=== PATIENT | male | born 1950 | race Caucasian/White ===

== ENCOUNTER 2021-04-26 17:18 | Inpatient (IN) | payer OTHER ==
[~2021-04-26] VITALS: Ht 175.3 cm; Wt 110.8 kg
--- NOTE | ~2021-04-26 | HC ---
[facility] [place] [address] CONSULTATION Name: MARK AMIN Jerome Room #: 527B-B DIS IN M.R.#: [id number] Admission: 04/26/21 Attend Phys: Supa Olvera, Discharge: 05/03/21 Date of : 54 Report #: [id number] THIS REPORT FOR: cc: OSCAR - Family physician unknown OSCAR - Family physician unknown Smith Tripathi MD ~ DATE OF SERVICE: 05/03/2021 HISTORY OF PRESENT ILLNESS: This is a 70-year-old male patient on whom a consultation was requested this evening to evaluate the patient for the possibility of stroke. I talked to Dr. Olvera who is attending physician because the patient is on the psychiatric floor. I discussed the patient with Dr. Wolf, who is following this patient as a hospitalist as well as director of field service. The patient was discussed with the nurse looking after this patient and the patient himself is pretty competent to give the history and provide reasonable history. The history he gives that he woke up this morning, he tried to get out of the bed and he realized that he could not bear weight on the left side and fell back on the bed. This is when he tried to get up this morning. Nurses saw this patient and the way I understand they noticed it around 8:00 or so. This kind of history is pretty common on the left side of the stroke because the patient has a neglect and they do not realize that they had a stroke and they tend to stand up and then they fall down. It is difficult to be certain, but my feeling is that this patient had a stroke during the sleep and it was noticed when he tried to get up. History is further complicated because the patient was also complaining of stroke. Review of record indicate a consult was called to the [facility], who see "strokes," but the best I can tell, that consult was never done. I was called this evening and I saw the patient immediately because of my review of the record in the computer. The patient is still weak on the left side. REVIEW OF SYSTEMS: Indicate that he says he never had any stroke before. He is a diabetic. His blood sugar is running high. He does not look like he had any hypoglycemia. LABORATORY DATA: His last labs were done on and that time, his sodium was okay and his estimated GFR was 55. His bilirubin was a trace high and on 04/27, he had a vitamin B12, which was normal, but on the lower side of the normal as recommendation now is to try to keep it more than 400. REVIEW OF SYSTEMS: Negative for any definite diagnosis of sleep apnea, but it looks like he is very predisposed for sleep apnea. He does appear to be on lisinopril, indicating that he probably has some hypertension. He said he was taking baby aspirin daily. He denies any swallowing difficulty. He did not complain of any new eye, ENT, cardiac, respiratory, GI, , musculoskeletal, [facility] [address] [place] [address] CONSULTATION Name: MARK AMIN Room #: 527B-B DIS IN M.R.#: [id number] Admission: 04/26/21 Attend Phys: Supa Olvera, DO Discharge: 05/03/21 Date of : 54 Report #: [id number] constitutional, dermatological, hematological symptom associated with these symptoms. He has been complaining of back pain, but his bigger problem was a problem on the left side and he was still feeling weak on the left side and that was his bigger complaint to me. PAST MEDICAL HISTORY: Negative for stroke. FAMILY HISTORY: Also negative for early age stroke. SOCIAL HISTORY: Indicates he does not smoke and he does not drink alcohol at the moment, although he has done it in the past. PHYSICAL EXAMINATION: Indicates that this patient is alert and responsive. He can tell me what month it is, what day it is, what hospital he is in, who the president is, and who was the one before. He does not have any significant speech difficulty. Cranial nerve examination was somewhat difficult to carry out, especially for the visual field. The main finding, which appeared to be on the cranial nerve that he appeared to have a mild facial droop. Neuromuscular finding is the one which is concerning. He does reasonably well when I check his NIH scale and some time, he has trouble holding his left leg for more than 5 seconds, but left arm he holds for the 10 seconds, but he is definitely weak on the left side as compared to the right side as much as I can tell. It takes him much more effort to hold his left arm and left leg than it does on the right side. He was able to guess on the position sense on both sides, but on the left side, it took him longer. His reflexes are diminished, but that is expected with the diabetes. His plantars were mute. His tone looks symmetrical. He does not appear to have any cerebellar sign. I could not look at the fundus. His cardiac examination does not appear to be showing any definite signs of atrial fibrillation, the best I can tell. Respiratory examination is unremarkable. His hearing and vision looks adequate. He does not have any edema. He is morbidly obese. He has been here for depression on the floor. IMPRESSION: The patient's clinical presentation is suggestive of a possible stroke. However, that needs to be confirmed. So far the testing, which has been done is a CT head without contrast and CT angiogram of the head and neck. CT angiogram of the head and neck demonstrated diffuse disease, but no embolus, which will indicate that the patient is a candidate for any thrombectomy or intervention. The diagnosis need to be further confirmed by an MRI of the brain. RECOMMENDATION: This patient needs multiple management. They are summarized as follows: 1. He needs an MRI of the brain to confirm the stroke. Psychiatrist indicated that he has already ordered that. If MRI confirm the stroke, then we need to see whether it looks like a lacunar CVA or whether it looks like an embolic CVA. [address] [address] CONSULTATION Name: MARK AMNI Room #: 527B-B DIS IN M.R.#: [id number] Admission: 04/26/21 Attend Phys: Supa Olvera DO Discharge: 05/03/21 Date of : 54 Report #: [id number] If it looks like a lacunar CVA, then we may not need much workup, but if looks like an embolic CVA, then he needs extensive workup to look for atrial fibrillation as an outpatient. 2. In the meantime, I will suggest doing a swallowing screen on him, which I ordered. If he passes the swallowing screen, he will get a loading dose of 600 mg of Plavix and then he will be on a combination of aspirin and Plavix until the MRI is done. I am going to start him on some normal saline because his blood pressure is running somewhat on the lower side. His diabetes needs to be tightly controlled and I will defer that to other physicians. 3. The option was to either do an MRI stat on him and keep him on the psychiatric floor if MRI is negative or transfer him to acute care where further evaluation can be done medically and all the other questions can be addressed. I discussed that aspect with other physician and I think it is desirable to transfer him to an acute care facility until further evaluation for the stroke is complete. Because until that he is going to need further management like increasing his blood pressure, monitoring him neurologically closely to make sure there is no deterioration, looking for atrial fibrillation, and doing an extensive workup including MRI and other parameter which need to be followed for the stroke protocols. 4. From all indication, it looks like he woke up with these symptoms and therefore, I do not believe he was a candidate for TPA at any stage. He is not a candidate for thrombectomy because there is no embolus, which has been defined and the disease is diffuse rather than abrupt cutoff. 5. He does need the other management with a presumptive diagnosis of stroke at the moment until an MRI can be done, which will either confirm the stroke or exclude that. Until MRI is done, I think we will continue to manage this patient with the presumptive diagnosis of stroke and decide about further management after the MRI is done. However, he is not a TPA candidate and he is not an intervention candidate for thrombectomy because there is no thrombus found and he is not a TPA candidate because of the timing. Thank you very much for this referral and if you have any questions, please feel free to contact me. By: [id number] Smith Tripathi MD /nt
[~2021-04-26 17:18] MED LIST: APAP650 PO; ARIXTRA SQ; BENADRYL25 MG PO; COLACE 100 MG100 MG PO; IBUPROFEN 800800 M1 PO; METAMUCIL POWD798 GM PO; MIRALAX255 GM PO; MOM; NEXIUM PO; OXYCONTIN10 M1 PO; OXYIR 5 MG CAPSU5 M1 PO
[2021-04-26 23:20] VITALS: BP 125/80
[2021-04-27] MEDS ORDERED: LIPITOR10 MG PO (00:04)
[2021-04-27] MEDS ORDERED: TESSALON PERLE100 MG PO (00:06)
[2021-04-27] MEDS ORDERED: CELEBREX 200 M200 M1 PO (00:08)
[2021-04-27] MEDS ORDERED: GLIPIZIDE 10 MG10 MG PO (00:10)
[2021-04-27] MEDS ORDERED: HYDROCODON-ACE1 EAC7 PO (00:12)
[2021-04-27] MEDS ORDERED: LISINOPRIL10 MG PO (00:13)
[2021-04-27] MEDS ORDERED: METFORMIN HCL500 M3 PO (00:14)
[2021-04-27] MEDS ORDERED: PROTONIX40 M2 PO (00:17)
--- NOTE | 2021-04-27 02:06 | NUR ---
04-26-212314 RECEIVED REPORT FROM ED CORYE LUCAS. PT ARRIVED ON UNIT 2320 AAOX4, VS B/P 125/80, P 90, R 18, T 96.2, 02 SAT 96% RA, RR EVEN AND NONLABORED; LUNGS CLEAR, HT RR, ABD SOFT/ACTIVE/NONTENDER. PT SKIN W/D, OLD SCARS NOTED, PT HAS CHARCOT FOOT. PT HAS GOOD ROM AND REPORTED USING A CANE AND ORTHO LEG BRACE FITTED TO TENNIS SHOES WITH LACES. PT REPORTED HE HAS USED A WALKER AND WALKER PROVIDED. PT DENIES SI/HI, BUT REPORTS HE HAS BEEN FEELLING SI SINCE MAURICIO CHISHOLM AFTER FAMILY ARGUMENT. PT HX DM2, HTN, HIGH CHOLESTEROL, CHARCOT FOOT, CHRONIC PAIN, KIDNEY STONES, ULCER, CHOLESCYSTECTOMY, TONSILECTOMY AND R. TOTAL KNEE. PT DENIES PAIN. PT BED ADJUSTED FOR COMFORT, LOWEST POSITION, LOCKED AND ALARM ENGAGED. HCP Cj ROSALES NP CONTACTED AND HCP Bandar ISSA NP CONTACTED AND ORDERS RECEIVED. PT WILL CONTINUE TO BE MONITOR PER [facility] PROTOCOL.
[2021-04-27 09:53] VITALS: BP 147/95
--- NOTE | 2021-04-27 10:24 | NUR ---
RESUMMED CARE FROM OVERNIGHT SHIFT THIS AM, PATIENT IN ROOM LYING QUIET. PATIENT CAME TO DAY ROOM FOR BREAKFAST TOOK MEDICATION WITHOUT INCIDENCE. PATIENT DENIES PATIENT DENIES HI/AH/VH AT PRESENT DOES HAVE PASSIVE SI. PATIENT STATES HIS DEPRESSION IS A 4 HIS ANXIETY IS A 4; PATIENT IS WORRIED THAT HE MAY GET HIS LT FOOT AMPUTATED. PATIENT HAS ALFONSO OF BOTH FEET MORE PRONOUNCED IN LT FOOT. PATIENTS ABDOMEN SOFT BOWEL SOUNDS PRESENT PATIENTS LUNGS CLEAR. PATIENT CALM QUIET PATIENT DID COME TO GROUP BUT MINIMAL PARTICPATION. WILL CONTIUE TO MONITOR PATIENT FOR SAFETY AND BEHAVIORS.
[2021-04-27 12:05] LABS: ANION GAP 12 mmol/L (7-16); BUN 21 mg/dL (7-18); CALCIUM 10.1 mg/dL (8.5-10.1); CHLORIDE 101 mmol/L (98-107); CHOLESTEROL 107 mg/dL (<200); CO2 24 mmol/L (21-32); CREATININE 1.4 mg/dL (0.7-1.3); GLUCOSE 397 mg/dL (74-106); HDL CHOLESTEROL 29 mg/dL (>40); LDL CHOLESTEROL 56 mg/dL (<100); MAGNESIUM 1.2 mg/dL (1.8-2.4); POTASSIUM 4.2 mmol/L (3.5-5.1); SODIUM 137 mmol/L (136-145); TC:HDL 3.7 Ratio (Not establshd); TRIGLYCERIDE 114 mg/dL (<150); VLDL 23 mg/dL (<40)
--- NOTE | 2021-04-27 13:36 | NUR ---
New admit to [facility]. Admission was lat last noc and there is minimal information in [facility]. Per chart review, he has PMH DMII, HTN, charcot foot. Noted with elevated glucose on admit >350. Other standard labs pending. Insulin in place. 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 Ate 100% bkft on 1800 [facility] diet with no c/o chewing/swallowing issues at this time. Follow up 04/29 when there is more information.
[2021-04-27 18:35] LABS: FOLIC ACID 8.4 ng/mL (8.6-58.9)
[2021-04-27 19:20] VITALS: BP 100/65
[2021-04-28 01:06] LABS: GLYCOHEMOGLOBIN (HGB A1C) 8.9 % (4.8-5.6)
--- NOTE | 2021-04-28 04:48 | NUR ---
04-27-21 CARE TRANSFERRED 1899. LATER PT PRESENTS DEPRESSED AND REPORTS BEING SAD OVER HIS EMOTIONAL OUTBURSTS MAURICIO KATHRINE. PT AAOX4, VSS, RR EVEN AND NONLABORED ON RA, LUNGS CLEAR, HT RR, ABD SOFT/ACTIVE/NONTENDER. PT DENIES SI/HI AND PAIN. STANDBY ASSISTANCE DURING TOLIETING. PT BED LOW, LOCKED AND ALARM ENGAGED. PT WILL CONTINUE TO BE MONITOR PER [facility] PROTOCOL.
[2021-04-28 08:47] VITALS: BP 129/67
--- NOTE | 2021-04-28 09:41 | H ---
[facility] [place] [address] HISTORY AND PHYSICAL Name: MARK AMIN Room #: 527B-B ADM IN M.R.#: [id number] Admission: 04/26/21 Attend Phys: Supa Olvera DO Discharge: Date of : 54 Report #: [id number] THIS REPORT FOR: cc: FAM - Family physician unknown FAM - Family physician unknown Supa Olvera DO ~ DATE OF SERVICE: 04/26/2021 INPATIENT PSYCHIATRIC EVALUATION ATTENDING PSYCHIATRIST: Supa Olvera DO MEDICAL CONSULTANTS: Ms. Norma Melgoza and Pierre Guzmán MD REASON FOR ADMISSION: Suicidal ideation. SOURCES OF INFORMATION: Records from [facility], interview with the patient, and chart review here at [place]. CHIEF COMPLAINT: "I lost it." HISTORY OF PRESENT ILLNESS: This is a 70-year-old obese male with diabetes and Charcot foot disease. The patient's records from [facility] are as follows: He presented to [facility] ED due to thoughts to hang himself and attempted to do this 11 years ago, but could not bring himself to jump off the ladder. The patient reports in the past month his depression has been exacerbated and he was having thoughts to hang himself in his basement. Denies HI or hallucinations. Reports that he had a dispute with his and his children. To me, the patient reported that his son-in-law disciplined his granddaughter and told her that they were going to leave. The patient reports that his stayed as he must get help to move out of the house. The patient reports he has anger control problems throughout his lifetime. In the ER, he was awake, oriented, calm, and cooperative. Thoughts were linear and goal directed. He lives with his in her home. They have 2 grown daughters and 2 granddaughters. He reports he has not slept for more than an hour at a time since when it was before . 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 He reports feeling lost. The patient denies ever seeing a psychiatrist. Denies being physically, sexually or emotionally abused, however. LABORATORY DATA: From [facility], sodium 135, potassium 4.0, chloride 105, bicarbonate 20, anion gap of 8, calcium 9.9, glucose was 313. Serum protein 7.6, albumin 4.4. Alkaline phosphatase 89, ALT 23, AST 16, bilirubin [address] [address] HISTORY AND PHYSICAL Name: CHERYLTamraMARK Room #: 527B-B ADM IN M.R.#: [id number] Admission: 04/26/21 Attend Phys: Supa Olvera DO Discharge: Date of : 54 Report #: [id number] 1.70, BUN 19, creatinine 1.20. GFR male non- 16.2. UDS was negative. Urine had glucosuria, otherwise negative. CBC: White count 8.8, H and H 16.6 and 48, platelet count 235. PAST MEDICAL HISTORY: Includes first degree AV block, aortic valve calcification, arthritis, GERD, hypertension, intractable low back pain, remote history of kidney stone, obesity, peptic ulceration, spinal stenosis, type 2 diabetes mellitus. PAST SURGICAL HISTORY: Appendectomy, cholecystectomy, joint replacement, tonsillectomy, and total knee arthroplasty. FAMILY MEDICAL HISTORY: Heart disease in his mother. Arthritis in his mother who is . Cancer in his father who is . Diabetes in his father. Heart attack in a brother. Alcohol abuse in a brother who is . He states he had 5 siblings, they are all now. Diabetes in maternal grandmother. Heart disease in his brother who is . Lung cancer in his sister who is . SOCIAL HISTORY: No history of smoking. No history of vaping. He drinks 1 standard drink of alcohol a week. REVIEW OF SYSTEMS: From [facility] ER: CONSTITUTIONAL: Negative for chills, diaphoresis, fatigue and fever. RESPIRATORY: Negative for cough and stridor. CARDIOVASCULAR: Negative for chest pain, palpitations. GASTROINTESTINAL: Negative for abdominal pain. GENITOURINARY: Negative for difficulty urinating. NEUROLOGIC: Negative for dizziness, lightheadedness. PSYCHIATRIC: Positive SI, depression, family discord, discord with . MUSCULOSKELETAL: He does have Charcot foot, uses a walker, difficulty walking. All other review of systems were negative in the [facility] ER and currently. HOME MEDICATIONS: Include atorvastatin, Tessalon Perles, diclofenac, glipizide, hydrocodone, lisinopril, metformin, Pantoprazole. His primary care physician is in the [facility] system, but I do not have record of it. Actually, he says he got to the ER due to being referred by the [facility] portal. PCPis Dr. Kareem Walker. He sees Dr. Julian, at [facility]. Remainder of the chart had ER notes indicated the family discord. States his son-in-law handling the disciplinary issues with his daughter fed him off and he states his one daughter, Matt was not there and at this moment he has a good relationship with her. [facility] [address] [place] [address] HISTORY AND PHYSICAL Name: MARK AMIN Jerome Room #: 527B-B ADM IN M.R.#: [id number] Admission: 04/26/21 Attend Phys: Supa Olvera DO Discharge: Date of : 54 Report #: [id number] VITAL SIGNS: Today, temperature 35.9, pulse 93, respirations 18, BP 147/95, O2 sat 96%. Repeat BP 138/78, pulse rate 72 this afternoon. PHYSICAL EXAMINATION: Ambulates slowly with a walker, He has Charcot foot deformity of I believe his left foot, but he has Charcot disease. MENTAL STATUS EXAMINATION: Well-developed, obese male, appearing to be stated age. Attention fair. Concentration fair. Speech slightly slow. Thought process: Linear and goal oriented. Thought content: Focused on ameliorating his situation, getting control of his anger, has relationship with his familial connections. Endorsed current SI. Denied HI. Endorsed plan to hang himself. Memory not formally tested. Insight and judgment impaired. Fund of knowledge well below average. Mood and affect depressed, restricted, congruent, diminished range. FORMULATION: A 70-year-old obese male, retired, presenting with SI, transferred from [facility]. The patient has a number of family stressors. PLAN: [facility]. Hospice consult to evaluate and stabilize. I went ahead and started him on 5 mg a day on Lexapro as he is on no psychotropic medications. I also added 200 mg of Neurontin 3 times a day for impulse control. He does have slight acute kidney injury at this time. His renal function will need to be monitored. ESTIMATED LENGTH OF STAY: 10-14 days. I would like to make contact with one of his daughters over the next few days. STRENGTHS: He is insured, has some family support. WEAKNESSES: Limited coping skills. Also, diagnostically, I have diagnosed him a major depressive disorder, unspecified degree and intermittent explosive disorder. Time spent on this case, greater than 60 minutes, greater than 50% of time in review of records and coordination of care. <ELECTRONICALLY SIGNED> By: Supa Olvera DO 04/28/21 0941 19 39 Supa Olvera DO /nt
[2021-04-28 10:31] VITALS: BP 129/67
--- NOTE | 2021-04-28 12:12 | NUR ---
04-28-2021--1115--Call to , Alyssa ([phone]) with the doctor to obtain oinformation for the completion of a psychosocial assessment.
--- NOTE | 2021-04-28 12:42 | NUR ---
PATIENT CARE ASSUMED AT 0700 - PATIENT IN ROOM WHEN ARRIVING ON UNIT. ALERT AND ORIENTED X 4 - EXTREMELY DEPRESSED - AFFECT BLUNTED AND MOOD SAD AND WITHDRAWN. STATED WAS ON BAD TERMS WITH FAMILY - HAVING AN OUTBURST MAURICIO KATHRINE. STATED HAD EXTREME ANGER ISSUES AND UNABLE TO CONTROL TEMPER. OUTBURST OCCURRED ON HOLIDAY KATHRINE AND TOLD HIM TO GET OUT - PATIENT ADMITS TO DEPRESSION AND RELUCTANT TO TALK ABOUT IT. PATIENT AMBULATORY AND SELF CARE. COMPLIANT WITH MEDICATIONS. HEART RATE STRONG AND STEADY, LUNGS CLEAR ON AUSCULTATION, BOWEL SOUNDS ACTIVE IN ALL FOUR QUADRANTS- SKIN INTACT AND CLEAR. PATIENT CALLED AND SPOKE WITH STAFF AND PATIENT. CONVERSATION WENT WELL. CONCERNED AND REDIRECTED TO DR. HEART AND SPECIAL ORDER JEWELER TO CONTACT. WILL CONTINUE TO MONITOR PATIENT FOR CHANGES IN BEHAVIOR OR CONCERNS AND ADDRESS ACCORDINGLY.
[2021-04-28 19:42] VITALS: BP 110/71
--- NOTE | 2021-04-29 05:21 | NUR ---
04-28-21 CARE TRANSFERRED 1899 OBSERVED PT SITTING IN DAY ROOM SOCIALIZING WITH PEER. LATER PT AAOX4, VSS, RR EVEN AND NONLABORED ON RA, LUNGS CLEAR, HT RR, ABD SOFT/ACTIVE. PT REPORTS PAIN IN ANKLE BUT DENIES NEEDING ANY PAIN MEDICATION. PT DENIES SI/HI. PT REPORTS STILL FEELING DEPRESSED OVER MAURICIO KATHRINE EMOTIONAL OUTBREAK. PT CALM AND COOPEATIVE. PT WILL CONTINUE TO BE MONITOR PER [facility] PROTOCOL.
[2021-04-29 07:05] LABS: CALCIUM 9.5 mg/dL (8.5-10.1); CREATININE 1.3 mg/dL (0.7-1.3); POTASSIUM 4.3 mmol/L (3.5-5.1)
--- NOTE | 2021-04-29 08:01 | NUR ---
04-29-2021--Call to Patient's and set up family meeting for 05-03-2021 @ 1:00 PM. She was agreeabble to this.
[2021-04-29 08:51] VITALS: BP 127/71
[2021-04-29 09:10] VITALS: BP 127/71
--- NOTE | 2021-04-29 09:14 | NUR ---
RESUMMED CARE FROM OVERNIGHT SHIFT THIS AM; PATIENT AWAKE ALERT ORIENTED TIMES 4. PATIENT DENIES SI/HI/AH/VH AT PRESNT. PATIENT ATE BREAKFAST TOOK MEDICATION WITHOUT INCIDENCE. PATIENTS ABDOMEN SOFT BOWEL SOUNDS PRESENT, PATIENTS LUNGS CLEAR. PATIENTS AFFECT FLAT CALM COOPERTIVE, PATIENT DOES PARTCPATE IN GROUPS. WILL CONTINUE TO MONITOR PATIENT FOR SAFWETY AND BEHAVIORS.
--- NOTE | 2021-04-29 10:17 | NUR ---
Nutrition: Pt with 100% intakes since admit on 1800 [facility] diet. A1c 8.9, BG still uncontrolled but showing improvement with meds in place. Folic acid ordered for folate deficiency, Mg for hypomagnesemia, statin for HLD. BMI 35, class II obesity. Low nutrition risk.
--- NOTE | 2021-04-29 12:57 | NUR ---
Critical result noted at 1120; Isolation precautions put in place, COVID PCR results positive; will continue to monitior
--- NOTE | 2021-04-29 15:49 | NUR ---
Second PCR test reveals negative; Nurse Press Box Custodian Mary informed of result; isoation precautions lifted; no symptoms visualized at this time;
[2021-04-29 17:51] VITALS: BP 137/73
[2021-04-29 19:32] VITALS: BP 139/77
--- NOTE | 2021-04-29 22:30 | NUR ---
At onset of night order selector pt was sitting in day room watching TV. This shift pt was up ad berry with walker, alert and oriented x4 with constricted affect. Pt was compliant with medication and vital signs. Pt denied SI, HI and AVH. Pt stated his depression and anxiety are a little better. Pt stated at times during the day his anxiety is a little worse due to a male peer yelling on the unit, but pt stated he would go to his room if he was too agitated by the peer. Pt talked about coping skills at home; including walking his dog, getting away from the triggering situation, and going outside. Pt is high fall risk; fall precautions are in place. Will continue to monitor.
[2021-04-30 07:49] LABS: BASOPHILS 0.3 % (0.0-2.0); EOSINOPHILS 1.2 % (0.0-3.0); HEMATOCRIT 44.7 % (42.0-52.0); LYMPHOCYTES 22.1 % (24.0-44.0); MCH 31.6 pg (26.0-34.0); MCHC 33.5 g/dL (28.0-37.0); MCV 94.3 fL (80.0-100.0); MONOCYTES 9.1 % (1.0-8.0); PLATELET COUNT 225 thou/uL (150-400); POLYS 67.3 % (36.0-66.0); RBC 4.74 mil/uL (4.50-6.00); WBC 7.4 thou/uL (4.0-11.0)
[2021-04-30 08:11] LABS: ALBUMIN 3.3 g/dL (3.4-5.0); CALCIUM 9.3 mg/dL (8.5-10.1); CREATININE 1.3 mg/dL (0.7-1.3); MAGNESIUM 1.2 mg/dL (1.8-2.4); TOTAL BILIRUBIN 1.4 mg/dL (0.2-1.0); TOTAL PROTEIN 6.7 g/dL (6.4-8.2)
[2021-04-30 09:30] VITALS: BP 136/87
[2021-04-30 11:52] VITALS: BP 136/87
--- NOTE | 2021-04-30 16:13 | NUR ---
Patient care resummed; patient in bed resting comfortably in bed; A&O*4; Lung sounds clear bilaterlly/diminished bases; Abdomen soft, nondistended, with BSP*4; VSS on RoomAir; Denies SI/HI/AVH; Patient states his depression "Isn't anything compared to where it has been." Patient also states to [employer] he isnt having any anxiety, and he only does when patients are yelling around him; Fall risk precautions are in place; Denied pain at beginning of the day although after being up and walking around all day he began having some mild pain in his BLE; Medications given per EMAR; Presents, [id number]; Will continue to monitior for safety and behaviors;
[2021-04-30 16:34] VITALS: BP 138/79
[2021-04-30 19:54] VITALS: BP 123/69
--- NOTE | 2021-05-01 06:42 | NUR ---
Pt was cooperative with care. Denied anxiety and depression. Pt slept well this shift. Meds given per emar. Covid swab done and sent to lab. No s/sx of acute pysch distress noted. Nursing to continue to monitor.
[2021-05-01 09:01] VITALS: BP 130/86
[2021-05-01 17:00] VITALS: BP 149/87
--- NOTE | 2021-05-01 18:24 | NUR ---
Alert and orientated X4. Calm, cooperative and compliant. Denies SI/HI. Breath sounds clear. Reg HR auscultated. Color pink with brisk capillary refill and palpable peripheral pulses. Independent with voiding. Active bowel sounds over large, rounded abdomen. Ambulates with walker with regular, steady gait. Hyperglycemia txed with lispro t/o day. Currently sitting in day room with peers watching TV.
--- NOTE | 2021-05-02 04:26 | NUR ---
Assumed pt's care this pm shift. Alert and oriented. Cooperative with care. Took meds whole without difficulties. Pt asked for the result of his covid test. Nursing saw that swab have not resulted. Lab was called as it says swab was not received. Lab staff confirmed swab has been received. Lab resulted negative. Pt already sleeping at the time. Will inform pt of result this am.
[2021-05-02 09:01] VITALS: BP 137/73
--- NOTE | 2021-05-02 11:17 | NUR ---
05-02-2021--1045--Physician came in to give me information re: patient. He will DC tomorrow. I will call [facility] to set up appt if possible. Also he will need a therapist and case assistant and a PHP program. Will call in the AM as no one is in on Monday.
--- NOTE | 2021-05-02 12:23 | NUR ---
COOPERATIVE AND PLEASANT. DENIES SI/SH/HI. ALERT AND ORIENTED X4-GAIT STEADY WITH USE OF ROLLER WALKER. NO NOTED OR REPORTED ACUTE ANXIETY OR PSYCHOSIS.PLANS DC TOMORROW
--- NOTE | 2021-05-02 14:19 | NUR ---
05-02-2021--Called patient into my office to discuss DC planning. I explained about what the recommendations (psychiatrist, therapist, school office manager and [facility] ([facility] out patient pshchiatric program). He listened attentively and stated the comprehensie program at [facility] was the closest. I told him I would call them in the AM to discuss process for getting into their program and then I would then talk to him again. I explained I thought Dialectical Behavioral Therapy (DBT) would be a good progra for him. He was agreeable to this. Will call facilities again oin the AM.
--- NOTE | 2021-05-02 14:26 | NUR ---
04-01-2022--1245--Patient and I discussed how to tell something to someone and not have them get angry with you. When you... I feel... Because... What I want is...; We practiced using this "formula" with different issues. Will use this in group for more prctice and try to again tomorrow morning when he gets up.
--- NOTE | 2021-05-02 18:00 | NUR ---
REPORTING LOW BACK PAIN RATED A 7-8 ON PAIN SCALE AT 1645-REQUESTING PAIN MEDICATION-NORCO5/325MG GIVEN PO PRN PER REQUEST WITH FOLLOW UP PAIN REASSESSMENT COMPLETED AT 1715-REPORTS MINIMAL PAIN RELIEF AFTER ADMINISTRATION STATING FELT LIKE PAIN "WAS GETTING A LITTLE BETTER" UNTIL HE STOOD UP TO WALK BACK TO ROOM WHEN HE HAD SEVERE "SHOOTING" PAIN THAT WENT FROM LOW BACK DOWN LEG. ENCOURAGED ALLOWING SDTAFF TO WALK WITH HIM-REINFORCED FALLS PRECAUTIONS.
[2021-05-02 19:50] VITALS: BP 154/85
[2021-05-02 20:24] VITALS: BP 154/85
--- NOTE | 2021-05-03 04:45 | NUR ---
PATIENT CARE WAS RESUMED AT 1900.HE WAS RESTING IN BED AND VERY EXCITED ABOUT GOING HOME THE NEXT DAY. HE IS CONTINIET OF BOWEL AND BLADDER. LUNGS ARE CLEAR BS ACTIVE X4 QUADS. HE DENIES PAINS/SI/AVH/HI. HE TOOK HIS MEDS WHOLE ND ABLE TO VERBALIZE HIS NEEDS. BED IS LOW AND LOCKED.AMBUALTES , CONTINENT OF BOWEL AND BLADDER.
--- NOTE | 2021-05-03 09:15 | NUR ---
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
--- NOTE | 2021-05-03 13:02 | NUR ---
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 SANFORD-USING ROLLER WALKER TO GET AROUND IN ROOM AND GAIT IS BASELINE. VS PER MD ORDER WNL. PT DOES CONTINUE TO REPORT LOW BACK PAIN RATED A 7 ON 1-10 SCALE-STATES PAIN IS SHOOTING IN NATURE AND STARTED LAST PM.
--- NOTE | 2021-05-03 13:05 | NUR ---
REPORTS POOR RESPONSE TO TYLENOL 650MG PO PRN GIVEN AT 0900 THIS AM.
[2021-05-03 16:28] VITALS: BP 124/70
[2021-05-03] MEDS ORDERED: COREG6.25 MG PO (17:32)
[2021-05-03] MEDS ORDERED: NEURONTIN 300M300 M2 PO (17:32)
[2021-05-03] MEDS ORDERED: LEXAPRO 10 MG T10 MG PO (17:33)
[2021-05-03] MEDS ORDERED: MAGNESIUM400 MG PO (17:33)
[2021-05-03] MEDS ORDERED: TRADJENTA5 MG PO (17:34)
[2021-05-03] MEDS ORDERED: LANTUS100 UNIT/M SUBQ (17:34)
[2021-05-03] MEDS ORDERED: FOLIC ACID1 MG PO (17:35)
[2021-05-03] MEDS ORDERED: GLIPIZIDE ER2.5 MG PO (17:35)
[2021-05-03 17:50] LABS: HEMATOCRIT 43.6 % (42.0-52.0); HEMOGLOBIN 14.8 gm/dL (14.0-18.0); MCH 31.9 pg (26.0-34.0); MCHC 33.9 g/dL (28.0-37.0); RBC 4.64 mil/uL (4.50-6.00); RDW 14.1 % (10.5-14.5); WBC 8.1 thou/uL (4.0-11.0)
[2021-05-03 18:00] LABS: INR 1.02; PROTIME 11.1 Seconds (10.5-12.1)
[2021-05-03 18:04] LABS: ALBUMIN 3.2 g/dL (3.4-5.0); CREATININE 1.3 mg/dL (0.7-1.3); MAGNESIUM 1.8 mg/dL (1.8-2.4); POTASSIUM 3.8 mmol/L (3.5-5.1); TOTAL BILIRUBIN 1.1 mg/dL (0.2-1.0); TOTAL PROTEIN 6.8 g/dL (6.4-8.2)
--- NOTE | 2021-05-03 18:15 | NUR ---
HAS BEEN UP IN ROOM USING ROLLER WALKER-GAIT STEADY WITH USE OF WALKER-UNCHANGED FROM BASELINE. 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 [place]. NO FACIAL DROOPING OR ONE SIDED DEFECITS NOTED-PT STATES FEELS "FINE" "A LITTLE TIRED FROM ALL THE TESTS" SPEECH NORMAL-NO SLURRING OR APHASIA NOTED. ATE 100 PERCENT OF LUNCH AND SUPPER WITHOUT NOTED OR REPORTED SWALLOWING ISSUES. BP /VS NEUROS Q 4 HOURS WNL.LAST BP 122/74 P-78 AND REG. R-16 AND REG O2 SAT 99 PERCENT ON RA
--- NOTE | 2021-05-04 17:21 | D ---
[facility] [place] [address] DISCHARGE SUMMARY Name: MARK AMIN Room #: 527B-B [facility] IN M.R.#: [id number] Admission: 04/26/21 Attend Phys: Supa Olvera DO Discharge: 05/03/21 Date of : 54 Report #: [id number] THIS REPORT FOR: cc: FAM - Family physician unknown FAM - Family physician unknown Supa Olvera DO ~ DATE OF SERVICE: 05/03/2021 INPATIENT PSYCHIATRIC DISCHARGE SUMMARY ATTENDING PSYCHIATRIST: Supa Olvera DO DRY CHAIN PULLER: Saul Wolf MD DISCHARGE DIAGNOSES: 1. Likely acute cerebrovascular accident, not a candidate for TPA. 2. Major depressive disorder, unspecified, F32.9. 3. Intermittent explosive disorder, F63.81. The patient is being discharged to a critical care tele at [facility] given concern of having a cerebrovascular accident today. His diet and activity level will be per the hospitalist. Please note over 90 minutes today was spent on managing various issues of this case, officially though, he remained inpatient of [facility] on the [facility] until after hours today. Atorvastatin 10 mg oral daily for hyperlipidemia, lisinopril 10 mg oral daily for hypertension, pantoprazole 40 mg oral daily for GERD, Coreg 6.25 mg oral twice daily with meals for hypertension, gabapentin 300 mg oral 3 times a day for intermittent explosive disorder, Lexapro 5 mg oral daily for depression, magnesium oxide 400 mg oral at bedtime for supplementation, Tradjenta 5 mg oral daily for diabetes mellitus, Lantus 10 units subcutaneous at bedtime, glipizide 5 mg oral daily for diabetes mellitus, folic acid 1 mg oral daily. He should be on a diabetic 1800 calorie diet. Accu-Cheks before meals and at bedtime, up with assist, recommending the only acute care for to get speech as well as physical and occupational therapy evaluation. LABORATORY DATA: Significant labs prior to discharge from [facility]. White count 8.1, H and H 14.8 and 43.6, platelet count 207. Coags today. PT 11.1, INR 1.02, APTT 30.2, all within normal limits. Electrolytes today, sodium 132, potassium 3.8, chloride 99, bicarbonate 26, anion gap 7, BUN 18, creatinine 1.3, estimated GFR 55, glucose 234, calcium 9.0, magnesium 1.8, total bilirubin 1.1, AST 6, ALT 18, alkaline phosphatase 78, total protein 6.8, albumin slightly low at 3.2. COVID-19 serology was positive on 04/29, it was a false positive and repeat was negative on 04/29 and was not detected on 05/01/2021. The patient had several imaging studies: Chest x-ray was negative that was done for concern of COVID. There was a stroke alert called and then canceled this morning. He did have a noncontrast head CT, which showed atrophic changes, no acute intracranial process. Also, interestingly had a CT angiogram [address] [address] DISCHARGE SUMMARY Name: MARK AMIN Room #: 527B-B [facility] IN ..#: [id number] Admission: 04/26/21 Attend Phys: Supa Olvera, Discharge: 05/03/21 Date of : 54 Report #: [id number] of the head, which showed mild diffuse cerebral atrophy, multifocal mild stenosis of the cavernous segment of the distal internal carotid arteries bilaterally and atherosclerotic calcifications of the carotid bulb bilaterally with no hemodynamically significant stenosis. REASON FOR ADMISSION: Back on or so march, 70-year-old male, obese diabetic, has Charcot foot, accepted from [facility]. The patient was having suicidal ideation. He had a history of prior attempt 11 years ago, recent family discords on Matter and Form, argument with both his daughters, his giving him an ultimatum, move out or get help. HOSPITAL COURSE: The patient was admitted to Geriatric Psychiatry Unit. The patient was generally depressed. He did have a history from home of intermittent explosive episodes with relatively euthymic mood in between. The patient was started on gabapentin 200 mg 3 times a day, titrated to 300 mg 3 times a day, also started on Lexapro 5 mg oral daily. Unfortunately, the patient woke up with left sided weakness this morning. This was worked up with an initial head CT with negative results. The patient remains symptomatic, Neurology was consulted. Recommendation for discharge to the medical unit to look for other causes such as atrial fibrillation. DISCHARGE PHYSICAL EXAMINATION: VITAL SIGNS: As follows: Temperature 36.8, pulse 80, BP 124/70, respiratory rate 22. MUSCULOSKELETAL: Lying in bed, appearing somewhat worn out. MENTAL STATUS EXAMINATION: This is a well-developed, ill-appearing, obese male, BMI 36.1. Hemoglobin A1c was 8.9 from his recent admission. LDL was 56, HDL was 29. Triglycerides 140, cholesterol 107. Attention intact. Concentration is intact. Speech, normal rate, volume and tone. Thought process: Linear and goal oriented. Thought content: Relative poverty of thought. Denied SI, HI. No auditory or visual type hallucinations. Mood and affect constricted, congruent. Insight and judgment fair to limited. Fund of knowledge average range. Prognosis for this patient is guarded as he is being discharged to [facility] due to acute cerebrovascular accident concern. It should be noted Dr. Tripathi, consulted on this case today. <ELECTRONICALLY SIGNED> By: Supa Olvera DO 05/04/21 1721 1802 [id number] Supa Olvera DO /nt
== END 2021-05-03 18:51 | disposition short-term general hospital (02) | DRG 885 ==
LOC: SBH
PROVIDERS: Internal Medicine; Nurse Practitioner; ADMIT Psychiatry & Neurology Psychiatry; ATTEND Psychiatry & Neurology Psychiatry
DX: F32.2 Major depressive disorder, single episode, severe without psychotic features (principal); F63.81 Intermittent explosive disorder; E11.65 Type 2 diabetes mellitus with hyperglycemia; R45.851 Suicidal ideations; Z20.822 Contact with and (suspected) exposure to COVID-19; I10 Essential (primary) hypertension; E78.5 Hyperlipidemia, unspecified; F41.9 Anxiety disorder, unspecified; E11.42 Type 2 diabetes mellitus with diabetic polyneuropathy; E83.42 Hypomagnesemia; Z90.49 Acquired absence of other specified parts of digestive tract; Z87.442 Personal history of urinary calculi
CPT/HCPCS: 10880

== ENCOUNTER 2021-05-03 17:44 | Inpatient (IN) | payer OTHER ==
[~2021-05-03] VITALS: Ht 167.6 cm; Wt 108.9 kg
[~2021-05-03 17:44] MED LIST changes: +CELEBREX 200 M200 M1 PO; +COREG6.25 MG PO; +FOLIC ACID1 MG PO; +GLIPIZIDE 10 MG10 MG PO; +GLIPIZIDE ER2.5 MG PO; +HYDROCODON-ACE1 EAC7 PO; +LANTUS100 UNIT/M SUBQ; +LEXAPRO 10 MG T10 MG PO; +LIPITOR10 MG PO; +LISINOPRIL10 MG PO; +MAGNESIUM400 MG PO; +METFORMIN HCL500 M3 PO; +NEURONTIN 300M300 M2 PO; +PROTONIX40 M2 PO; +TESSALON PERLE100 MG PO; +TRADJENTA5 MG PO
[2021-05-03 20:15] VITALS: BP 131/84
[2021-05-04 03:25] LABS: HEMATOCRIT 41.4 % (42.0-52.0); HEMOGLOBIN 14.3 gm/dL (14.0-18.0); MCH 32.1 pg (26.0-34.0); MCHC 34.5 g/dL (28.0-37.0); MCV 93.2 fL (80.0-100.0); RBC 4.44 mil/uL (4.50-6.00); RDW 14.1 % (10.5-14.5); WBC 8.3 thou/uL (4.0-11.0)
[2021-05-04 03:50] LABS: CREATININE 1.2 mg/dL (0.7-1.3); POTASSIUM 3.8 mmol/L (3.5-5.1)
[2021-05-04 03:58] LABS: CHOLESTEROL 98 mg/dL (<200); HDL CHOLESTEROL 36 mg/dL (>40); LDL CHOLESTEROL 51 mg/dL (<100); TC:HDL 2.7 Ratio (Not establshd); TRIGLYCERIDE 58 mg/dL (<150); VLDL 12 mg/dL (<40)
[2021-05-04 04:08] LABS: SERUM ASSESSMENT Clear
[2021-05-04 04:45] VITALS: BP 128/80
--- NOTE | 2021-05-04 07:20 | NUR ---
ASSUMED CARE OF PT AT 1900. PT ASSESSED TO BE AOX4 70M PRESENTING WITH CVA SYMPTOMS. PT WAS ABLE TO REST QUIETLY THROUGHOUT THE NIGHT IN BED WITH NO COMPLAINTS AFTER ALL ADMIT CHECKLIST COMPLETED, VSS. PT STABLE ON RA, NIH INITIALLY 2 (ONLY DEFECITS ARE SLIGHT WEAKNESS IN L ARM AND LEG), CONTINENT WITH URINAL, NEW IV R FORE 18G WITH FLUIDS RUNNING, AND WILL AWAIT MRI IN AM. WILL CONT TO MONITOR,
[2021-05-04 09:30] VITALS: BP 123/71
--- NOTE | 2021-05-04 09:30 | 2DMMODE ---
[facility] [place] [address] 2 D/M-MODE ECHOCARDIOGRAM Name: MARK AMIN Jerome Room #: 215-P ADM IN M.R.#: [id number] Admission: 05/03/21 Attend Phys: Saul Wolf MD Discharge: Date of : 54 Report #: [id number] THIS REPORT FOR: cc: FAM - Family physician unknown FAM - Family physician unknown Jong Gómez MD [facility] ~ APPROVED REPORT Study performed: 05/04/2021 08:50:47 EXAM: Comprehensive 2D, Doppler, and color-flow Echocardiogram Patient Location: Bedside Room #: 215 Status: routine BSA: 2.14 HR: 80 bpm BP: 128/80 mmHg Rhythm: NSR Other Information Study Quality: Adequate Indications CVA/TIA Diabetes Hypertension/HDD Morbid obesity Echo Enhancing Agent Indication: Rule out Shunt Agent(s) / Amount(s) Used: Agitated Saline 7 cc 2D Dimensions IVSd: 11.05 (7-11mm) LVOT Diam: 23.92 (18-24mm) LVDd: 54.10 mm PWd: 10.62 (7-11mm) Ascending Ao: 35.13 (22-36mm) LVDs: 40.25 (25-40mm) Left Atrium: 33.73 (27-40mm) Aortic Root: 33.00 mm Volumes Left Atrial Volume (Systole) Single Plane 4CH: 34.68 mL Single Plane 2CH: 47.67 mL LA ESV Index: 22.00 mL/m2 [facility] [address] [place] [address] 2 D/M-MODE ECHOCARDIOGRAM Name: MARK AMIN Room #: 215-P [facility] IN .R.#: [id number] Admission: 05/03/21 Attend Phys: Saul Wolf MD Discharge: Date of : 54 Report #: [id number] Aortic Valve AoV Peak Ean.: 1.28 m/s AO Peak Gr.: 6.57 mmHg LVOT Max P.31 mmHg LVOT Max V: 0.91 m/s LI Vmax: 3.19 cm2 Pulmonary Valve PV Peak Ean.: 1.01 m/s PV Peak Gr.: 4.12 mmHg Tricuspid Valve TR Peak Ean.: 2.24 m/s TR Peak Gr.: 20.09 mmHg PA Pressure: 20.00 mmHg Left Ventricle The left ventricle is normal size. There is normal LV segmental wall motion. There is normal left ventricular wall thickness. The left ventricular systolic function is normal. The left ventricular ejection fraction is within the normal range. LVEF is 50-55%. Grade I - abnormal relaxation pattern. Right Ventricle The right ventricle is normal size. The right ventricular systolic function is normal. Atria The left atrium size is normal. Injection of contrast documented no interatrial shunt. The right atrium size is normal. Aortic Valve The aortic valve is normal in structure. Aortic valve is calcified. No aortic regurgitation is present. There is no aortic valvular stenosis. Mitral Valve The mitral valve is normal in structure. There is no mitral valve regurgitation noted. No evidence of mitral valve stenosis. Tricuspid Valve The tricuspid valve is normal in structure. There is trace tricuspid regurgitation. Estimated PAP 20 mmHg plus the right atrial pressure. There is no pulmonary hypertension. Pulmonic Valve The pulmonary valve is normal in structure. There is no pulmonic [facility] [place] [address] 2 D/M-MODE ECHOCARDIOGRAM Name: MARK AMIN Room #: 215-P ADM IN M.R.#: [id number] Admission: 05/03/21 Attend Phys: Saul Wolf MD Discharge: Date of : 54 Report #: [id number] valvular regurgitation. Great Vessels The aortic root is normal in size. IVC is not well visualized. Pericardium There is no pericardial effusion. <Conclusion> Normal left ventricle size/wall thickness Ejection fraction 50-55% Grade 1 diastolic dysfunction Normal left atrial size Aortic valve sclerosis without stenosis Normal valve structure and function Trace tricuspid valve insufficiency No pericardial effusion Normal aortic root size <ELECTRONICALLY SIGNED> By: Jong Gómez MD, [facility] 05/04/21929 9 9 Jong Gómez MD, FACC /INF
--- NOTE | 2021-05-04 09:40 | NUR ---
70-year-old male with HX of HTN, DM type 2 , depression, anxiety, SI with plans " 11 years ago to hang myself in my garage" per Gwyn. He was initially admitted to our [facility] on 04/26 for suicidal thought and increasing depression. Had a code stroke activated due to left sided weakness and left facial droop, while he was on [facility]. He was moved to acute hospital. He was given Plavix. MRI and Echo in AM possible today. Gwyn states he was here because of his anger issue with family and SI. Noted he had angry outburst with family at [employer] dinner. Cm visited with Gwyn at bedside. He is a & o x 3, soft spoken during visit and able to make his needs know. He asked cm to call his arlette. cm called her cell, no answer left message requesting a call back. Prior to hospital, he was independent at home. 2 steps with 1 handrail to enter the home from the garage. No handrail in from the front door. Has cane, fww, shower chair and brace for his Leonor left foot. Manage own medication at home. Drives vehicle. PCP is at [facility] Dr Tyler Richardson, and diabetic DR Reid Julian. HH in the past years ago for his knee, no rehab in the past. Possible getting MRI today. Neuro consulted. Will cont. following as needed
[2021-05-04 12:22] VITALS: BP 123/71
[2021-05-04 16:04] VITALS: BP 149/82
[2021-05-04 19:36] VITALS: BP 114/66
[2021-05-05 04:13] VITALS: BP 135/83
--- NOTE | 2021-05-05 05:06 | NUR ---
Assumed pt care at 1900. Pt is alert and oriented. No sign of distress noted in pt. Pt is stable. Vital signs stable. Assessment documented. Scheduled meds administered to pt. No acute event through the night. Continue to monitor. No further needs at this time.
[2021-05-05 08:00] VITALS: BP 148/79
[2021-05-05 09:08] LABS: ANA INTERPRETATION Negative (Negative)
[2021-05-05 11:00] VITALS: BP 151/86
[2021-05-05] MEDS ORDERED: ADULT LOW DOSE81 MG PO (13:56)
[2021-05-05] MEDS ORDERED: ACETAMINOPHEN325 M1 PO (13:56)
[2021-05-05] MEDS ORDERED: MIRALAX17 GM PO (13:56)
[2021-05-05] MEDS ORDERED: CLOPIDOGREL75 MG PO (13:56)
--- NOTE | 2021-05-05 15:23 | NUR ---
Pt A & O x4. Pt VS stable. Pt is SR on the tele. pt received medications as ordered. Pt is x1 assist with ADLs and cares. Pt received discharge orders to home. Discharge instructions reviewed with pt and pt verbalizes understanding and signed instructions. pt wheeled to enterence in wheelchair by staff with personal belongings and left hospital without [facility].
[2021-05-05 16:41] VITALS: BP 151/86
--- NOTE | 2021-05-05 17:30 | NUR ---
Pt dc'd to home with his today. HH was recommended. [employer] spoke with pt/ via phone after dc today and they would like to setup hh. His pcp is Dr Aubrey Flores at [facility]. Pt and also given info for [facility] and encouraged to call for an assessment appointment to establish an outpt mental health treatment plan. Pt/ familiar with hh from a few years ago but can not recall the agency name. They would are open to any agency that can take their ins plan and see him in the next few days. Referral faxed and called to Katharine. Awaiting a confirmation back.
[2021-05-05 19:07] LABS: SYPHILIS AB Non Reactive (Non Reactive)
== END 2021-05-05 16:12 | disposition home health service (06) | DRG 73 ==
LOC: 2N 17:44
PROVIDERS: Nurse Practitioner Family; Psychiatry & Neurology Neuromuscular Medicine; ADMIT Internal Medicine; ATTEND Internal Medicine
DX: E11.42 Type 2 diabetes mellitus with diabetic polyneuropathy (principal); G93.41 Metabolic encephalopathy; E87.1 Hypo-osmolality and hyponatremia; R45.851 Suicidal ideations; G93.49 Other encephalopathy; E78.5 Hyperlipidemia, unspecified; F41.9 Anxiety disorder, unspecified; F32.9 Major depressive disorder, single episode, unspecified; R29.810 Facial weakness; N18.9 Chronic kidney disease, unspecified; E11.65 Type 2 diabetes mellitus with hyperglycemia; E11.22 Type 2 diabetes mellitus with diabetic chronic kidney disease; I12.9 Hypertensive chronic kidney disease with stage 1 through stage 4 chronic kidney disease, or unspecified chronic kidney disease; E66.01 Morbid (severe) obesity due to excess calories; Z68.38 Body mass index [BMI] 38.0-38.9, adult; Z90.49 Acquired absence of other specified parts of digestive tract; Z83.3 Family history of diabetes mellitus; Z82.49 Family history of ischemic heart disease and other diseases of the circulatory system; Z87.442 Personal history of urinary calculi; R53.1 Weakness
CPT/HCPCS: 10081